=== PATIENT | male | born 1950 | race Caucasian/White ===

== ENCOUNTER 2019-01-16 11:28 | Inpatient (IN) | payer OTHER ==
[~2019-01-16] VITALS: Ht 175.3 cm; Wt 87.4 kg
[~2019-01-16 11:28] MED LIST: ANTI DEPRESSANT; BISCOLAX10 MG RECTAL; CARAFATE 1 GM TA1 G1 PO; HYDROCODON-ACE1 EAC7 PO; INDAPAMIDE2.5 MG PO; KLOR-CON 10 ER10 MEQ PO; LISINOPRIL40 MG PO; NEXIUM 40 MG CA40 M1 PO; NORCO 7.5-3251 EACH PO; PRINIVIL20 MG PO; PROTONIX40 M1 PO; SENOKOT-S1 TA1 PO; TEMAZEPAM15 MG PO; ULTRAM 50MG TAB50 MG PO; XANAX 0.5 MG0.5 M1 PO; ZETIA10 MG PO
[2019-01-16 11:30] VITALS: BP 137/87
[2019-01-16 11:45] LABS: ABSOLUTE NEUTROPHILS 4.9 thou/uL (1.4-8.2); BASOPHILS 2.2 % (0.0-2.0); EOSINOPHILS 1.4 % (0.0-3.0); HEMATOCRIT 48.9 % (42.0-52.0); HEMOGLOBIN 17.3 gm/dL (14.0-18.0); MCH 29.9 pg (26.0-34.0); MCHC 35.4 g/dL (28.0-37.0); MCV 84.6 fL (80.0-100.0); MONOCYTES 8.2 % (1.0-8.0); PLATELET COUNT 250 thou/uL (150-400); POLYS 55.2 % (36.0-66.0); RBC 5.78 mil/uL (4.50-6.00); RDW 13.7 % (10.5-14.5); WBC 8.8 thou/uL (4.0-11.0)
[2019-01-16 11:53] LABS: ANION GAP 14 mmol/L (7-16); BUN 20 mg/dL (7-18); CALCIUM 10.1 mg/dL (8.5-10.1); CHLORIDE 98 mmol/L (98-107); CO2 25 mmol/L (21-32); CREATININE 1.1 mg/dL (0.7-1.3); GLUCOSE 107 mg/dL (74-106); POTASSIUM 3.2 mmol/L (3.5-5.1); SODIUM 137 mmol/L (136-145)
[2019-01-16 12:03] LABS: ALBUMIN 4.5 g/dL (3.4-5.0); SGOT 27 U/L (15-37); SGPT 37 U/L (30-65); TOTAL BILIRUBIN 1.2 mg/dL (<0.1-1.0); TROPONIN-I <0.06 ng/mL (<0.06)
[2019-01-16] MEDS ORDERED: ZANTAC 150MG T150 MG PO (13:22)
[2019-01-16 13:45] VITALS: BP 117/59
[2019-01-16 14:23] LABS: CHOLESTEROL 318 mg/dL (<200); HDL CHOLESTEROL 30 mg/dL (>40); LDL CHOLESTEROL 257 mg/dL (<100); TC:HDL 10.6 Ratio (Not establshd); TRIGLYCERIDE 158 mg/dL (<150); VLDL 32 mg/dL (<40)
[2019-01-16 14:33] VITALS: BP 117/59
[2019-01-16 15:00] VITALS: BP 127/82
--- NOTE | 2019-01-16 16:04 | 2DMMODE ---
[facility] [place] [address] 2 D/M-MODE ECHOCARDIOGRAM Name: LATOSHA RAINEY Room #: 205-P [facility] IN [facility]#: [id number] ������������� Admission: 01/16/19 ������������� Attend Phys: Elo Rios MD Discharge: ��� ������������� ��� Date of : 52 Date of Service: 01/16/19 1604 �� Report #: [id number] �������� ��������������������������������������������[id number] THIS REPORT FOR: //name// APPROVED REPORT Study performed: 01/16/2019 14:20:53 EXAM: Comprehensive 2D, Doppler, and color-flow Echocardiogram Patient Location: Echo lab Room #: ER Status: routine BSA: 2.08 HR: 77 bpm BP: 117/59 mmHg Rhythm: NSR Other Information Study Quality: Adequate Indications History of valve disease. Short of breath, chest pain. Echo Enhancing Agent Indication: Endocardial border delineation Agent(s) / Amount(s) Used: Optison 5 cc 2D Dimensions RVDd: 35.15 mm IVSd: 10.41 (7-11mm) LVOT Diam: 21.59 (18-24mm) LVDd: 47.36 mm PWd: 9.99 (7-11mm) Ascending Ao: 33.34 (22-36mm) LVDs: 30.81 (25-40mm) Aortic Root: 40.86 mm Volumes Left Atrial Volume (Systole) Single Plane 4CH: 38.97 mL Single Plane 2CH: 56.08 mL LA ESV Index: 25.00 mL/m2 Aortic Valve AoV Peak Kirt.: 1.38 m/s AO Peak Gr.: 7.60 mmHg LVOT Max P.80 mmHg LVOT Max V: 0.97 m/s BABATUNDE Vmax: 2.59 cm2 [facility] [address] [place] [address] 2 D/M-MODE ECHOCARDIOGRAM Name: BRIGIDLATOSHA Gomez Room #: 205-P [facility] IN ..#: [id number] ������������� Admission: 01/16/19 ������������� Attend Phys: Elo Rios MD Discharge: ��� ������������� ��� Date of : 52 Date of Service: 01/16/19 1604 �� Report #: [id number] �������� ��������������������������������������������[id number] Mitral Valve E/A Ratio: 0.8 MV Decel. Time: 270.49 ms MV E Max Kirt.: 0.69 m/s MV A Kirt.: 0.84 m/s MV PHT: 78.44 ms IVRT: 72.66 ms Pulmonary Valve PV Peak Kirt.: 0.78 m/s PV Peak Gr.: 2.46 mmHg Pulmonary Vein P Vein S: 0.68 m/s P Vein A: 0.35 m/s P Vein D: 0.42 m/s P Vein A Dur.: 96.9 msec P Vein S/D Ratio: 1.62 Tricuspid Valve TR Peak Kirt.: 2.81 m/s RAP Estimate: 5.00 mmHg TR Peak Gr.: 31.63 mmHg PA Pressure: 37.00 mmHg Left Ventricle The left ventricle is normal size. There is normal LV segmental wall motion. There is normal left ventricular wall thickness. Left ventricular systolic function is normal. LVEF is 60-65%. Mild diastolic dysfunction is present (impaired relaxation pattern). Right Ventricle The right ventricle is normal size. The right ventricular systolic function is normal. Atria The left atrium size is normal. The right atrium size is normal. Aortic Valve The aortic valve is normal in structure, mildly thickened. No aortic regurgitation is present. There is no aortic valvular stenosis. Mitral Valve The mitral valve is normal in structure. No mitral regurgitation[place] [address] 2 D/M-MODE ECHOCARDIOGRAM Name: LATOSHA RAINEY Room #: 205-P [facility] IN ..#: [id number] ������������� Admission: 01/16/19 ������������� Attend Phys: Elo Rios MD Discharge: ��� ������������� ��� Date of : 52 Date of Service: 01/16/19 1604 �� Report #: [id number] �������� ��������������������������������������������[id number] The tricuspid valve is normal in structure. Mild to moderate tricuspid regurgitation. Estimated PAP is 35 mmHg. Pulmonic Valve The pulmonary valve is normal in structure. Trace pulmonic regurgitation. Great Vessels Aortic root is dilated at 4.1cm. The ascending aorta is normal in size. IVC is normal in size and collapses >50% with inspiration. Pericardium There is no pericardial effusion. <Conclusion> Left ventricular systolic function is normal. There is normal LV segmental wall motion. LVEF is 60-65%. Mild diastolic dysfunction The aortic valve is normal in structure, mildly sclerotic. No aortic regurgitation or stenosis. The mitral valve is normal in structure. No mitral regurgitation. Mild to moderate tricuspid regurgitation. Estimated pulmonary artery pressure of 35 mmHg. There is no pericardial effusion. ��������������������������������������������� <ELECTRONICALLY SIGNED> ���������������������������������������� By: Alistair Lobo MD, [facility] ��������������������������������������������� 01/16/19 1604 1604 1604 Alistair Lobo MD, FAC /INF
--- NOTE | 2019-01-16 16:43 | NUR ---
TO UNIT FROM Brianna PER CART AT 1500, REPORT FROM PETEY GOMEZ, DENIED CHEST PAIN. VSS. ORIENTED TO UNIT. NSR PER TELE. WILL CONTINUE TO FOLLOW.
[2019-01-16 19:50] VITALS: BP 123/74
[2019-01-17 00:04] VITALS: BP 105/64
[2019-01-17 04:36] VITALS: BP 111/62
[2019-01-17 05:11] LABS: HEMATOCRIT 45.2 % (42.0-52.0); HEMOGLOBIN 15.5 gm/dL (14.0-18.0); MCH 29.5 pg (26.0-34.0); MCHC 34.2 g/dL (28.0-37.0); MCV 86.4 fL (80.0-100.0); RBC 5.23 mil/uL (4.50-6.00); RDW 13.7 % (10.5-14.5); WBC 7.9 thou/uL (4.0-11.0)
--- NOTE | 2019-01-17 05:11 | NUR ---
PT HAS RESTED WELL THIS SHIFT. PT HAS BEEN NPO SINCE MIDNIGHT FOR HEART CATH PROCEDURE TODAY. PT SR/SB ON MONITOR. HAS NOT C/O OF ANY PERSISTANT CP.
[2019-01-17 07:20] VITALS: BP 116/64
[2019-01-17 09:06] LABS: GLYCOHEMOGLOBIN (HGB A1C) 5.1 % (4.8-5.6)
--- NOTE | 2019-01-17 09:41 | NUR ---
ASSUMED CARE OF PT APPROX 0715, GAVE HIS ONE MEDICATION DUE THIS A.M. PRIOR TO PROCEDURE W/FEW SIPS OF WATER. SPOUSE AT BEDSIDE, GAVE PT EDUCATION ON EXPECTATIONS ONCE HE RETURNS TO FLOOR. GAVE SPOUSE COFFEE. HEART REGULAR AND BREATH SOUNDS CLEAR. SEE INTERVENTION FOR FULL ASSESSMENT. ENCOURAGED BOTH TO USE CALL LIGHT FOR ANY NEEDS. PT LEFT UNIT AROUND 0920.
[2019-01-17] MEDS ORDERED: CRESTOR40 MG PO (10:45)
[2019-01-17 10:47] VITALS: BP 108/67
[2019-01-17] MEDS ORDERED: METOPROLOL SUCC50 MG PO (10:49)
[2019-01-17 11:36] LABS: CALCIUM 8.9 mg/dL (8.5-10.1); CREATININE 0.8 mg/dL (0.7-1.3); POTASSIUM 4.1 mmol/L (3.5-5.1)
--- NOTE | 2019-01-17 12:01 | CATHLAB ---
[facility] [place] [address] INVASIVE PROCEDURE REPORT Name: LATOSHA RAINEY Room #: 205-P ADM IN .R.#: [id number] ������������� Admission: 01/16/19 ������������� Attend Phys: Elo Rios MD Discharge: ��� ������������� ��� Date of : 52 Date of Service: 01/17/19 1201 �� Report #: [id number] �������� ��������������������������������������������[id number] THIS REPORT FOR: //name// APPROVED REPORT Study performed: 01/17/2019 09:10:01 Patient Details Patient Status: In-Patient Room #: 205 The patient is a 68 year-old male Event Personnel Estiven Álvarez Emission Specialist, Leland Caba RN RN, Mariangel Laird RTR, ONLINE PRODUCER Monitor, Gui Paz RTR Scrub Procedures Performed Art Access - R femoral artery* Left Heart Cath w/or w/o Coronaries [id number] [facility] Renal Bilateral Peripheral Angiography [id number] CVRENALBIL 64037 Initial Mod Sed Same Phys/QHP Gr5y [id number] Hemostasis w/ Mynx Indication Chest pain Procedure Narrative The Right Groin^ was infiltrated with 1% Lidocaine subcutaneous anesthesia. A PINNACLE 6FR Sheath #[id number] sheath was inserted into the RFA^. Coronary angiography was performed using coronary diagnostic catheters. The right coronary system was accessed and visualized with a JR4 catheter. The left coronary system was accessed and visualized with a JL4 catheter. The left ventricle was accessed and visualized with a Pigtail catheter. Left ventricular/Aortic Valve gradient assessed via catheter pullback. Left ventriculogram was performed in 30 degree projection. An aortogram of the abdominal aorta was performed. Pre-demployment femoral angiogram was performed . Closure device was deployed with a 6 Fr MYNXGRIP 6/7F #[id number]. There was no hematoma. Intraoperative Conscious Sedation Sedation start time: 09:55 Case end Time: 10:23 Fentanyl 100 mcg Versed 2 mg Fluoro Time: 5.12 minutes [facility] [address] [place] [address] INVASIVE PROCEDURE REPORT Name: LATOSHA RAINEY Room #: 205-P [facility] IN .R.#: [id number] ������������� Admission: 01/16/19 ������������� Attend Phys: Elo Rios MD Discharge: ��� ������������� ��� Date of : 52 Date of Service: 01/17/19 1201 �� Report #: [id number] �������� ��������������������������������������������[id number] Dose: DAP 7151.50 cGycm2 839 mGy Contrast Type and Amount: Omnipaque 145 ml Hemodynamics The aortic pressure is 170/55 mmHg with a mean of 83 mmHg. The left ventricular pressure is 117/8 mmHg with a mean of mmHg. The left ventricular end diastolic pressure is 18 mmHg. Conclusion #1 left main free of disease giving rise to LAD and circumflex. #2 LAD extends around the apex. There is moderate to diffuse disease from the mid vessel distally. Long area in the mid vessel 60% diffusely disease after treatment medically #3 circumflex OM is large dominant vessel with minimal plaquing. #4 small nondominant right coronary artery without significant disease. #5 normal left ventricular size and systolic function EF 55-60% #6 selective bilateral renal angiography was performed there is mild ostial disease involving the right renal artery Recommendations and plan continue aggressive risk factor modification. There is no indication for coronary intervention. Patient has familial hypercholesterolemia we will initiate aggressive cholesterol-lowering medication ��������������������������������������������� <ELECTRONICALLY SIGNED> ���������������������������������������� By: Estiven Álvarez MD, FACC ��������������������������������������������� 01/17/19 1201 1201 1201 Estiven Álvarez MD, FACC /INF
[2019-01-17 13:42] VITALS: BP 108/67
[2019-01-17 13:51] VITALS: BP 108/67
--- NOTE | 2019-01-19 07:49 | EKG ---
[address] [place] [address] ELECTROCARDIOGRAM REPORT Name: LATOSHA RAINEY Room #: 205-P [facility] IN M.R.#: [id number] ������������������ Admission: 01/16/19 ������������������ Attend Phys: Elo Rios MD Discharge: 01/17/19 ������������������ Date of : 52 Report #: [id number] ����������������������������������������������������������������� [id number] THIS REPORT FOR: //name// [facility] ED Test Date: 2019-01-16 Test Time: 11:33:39 Pat Name: LATOSHA RAINEY Department: Room: [facility][note 3] Gender: M Business Planning Manager: DUGLAS : 1950 Requested By: Florence Cisneros Order Number: [id number] MD: Alistair Lobo Measurements Intervals [place] Rate: 94 P: 56 AR: 120 QRS: -9 QRSD: 92 T: -2 QT: 363 QTc: 454 Interpretive Statements Sinus rhythm Abnormal R-wave progression, early transition nonspecific ST segment abnormality Compared to ECG 10/21/2013 21:24:56 No significant changes Electronically Signed On 01-19-2019 7:49:37 CDT by Alistair Lobo [email or web address] ��������������������������������������������� <ELECTRONICALLY SIGNED> ���������������������������������������� By: Alistair Lobo MD, [facility] ��������������������������������������������� 01/19/19 0749 1133 1133 Alistair Lobo MD, [facility] /EPI
--- NOTE | 2019-01-19 07:58 | EKG ---
[address] [place] [address] ELECTROCARDIOGRAM REPORT Name: LATOSHA RAINEY Room #: 205-[facility] IN M.R.#: [id number] ������������������ Admission: 01/16/19 ������������������ Attend Phys: Elo Rios MD Discharge: 01/17/19 ������������������ Date of : 52 Report #: [id number] ����������������������������������������������������������������� [id number] THIS REPORT FOR: //name// [facility] Test Date: 2019-01-17 Test Time: 07:12:27 Pat Name: LATOSHA RAINEY Department: Room: 205 Gender: M Real Estate Representative: Elle RAMOS : 1950 Requested By: Sophia Matthews Order Number: [id number] MD: Alistair Lobo Measurements Intervals [place] Rate: 56 P: 32 AL: 126 QRS: -18 QRSD: 89 T: 0 QT: 455 QTc: 440 Interpretive Statements Sinus rhythm No significant abnormality Compared to ECG 10/21/2013 21:24:[address] segment abnormality no longer present Electronically Signed On 01-19-2019 7:58:02 CDT by Alistair Lobo [email or web address] ��������������������������������������������� <ELECTRONICALLY SIGNED> ���������������������������������������� By: Alistair Lobo MD, [facility] ��������������������������������������������� 01/19/19 0758 1 1 Alistair Lobo MD, [facility] /EPI
== END 2019-01-17 14:25 | disposition home or self-care (01) | DRG 287 ==
LOC: ER 11:28 → EROBS 13:29 → 2N 14:56
PROVIDERS: Physician Assistant; ADMIT Internal Medicine
PROC: B2111ZZ Fluoroscopy of Multiple Coronary Arteries using Low Osmolar Contrast (ICD-10-PCS; principal; 2019-01-17)
PROC: B4101ZZ Fluoroscopy of Abdominal Aorta using Low Osmolar Contrast (ICD-10-PCS; principal; 2019-01-17)
PROC: B2151ZZ Fluoroscopy of Left Heart using Low Osmolar Contrast (ICD-10-PCS; principal; 2019-01-17)
PROC: 4A023N7 Measurement of Cardiac Sampling and Pressure, Left Heart, Percutaneous Approach (ICD-10-PCS; principal; 2019-01-17)
PROC: B41F1ZZ Fluoroscopy of Right Lower Extremity Arteries using Low Osmolar Contrast (ICD-10-PCS; principal; 2019-01-17)
PROC: B4181ZZ Fluoroscopy of Bilateral Renal Arteries using Low Osmolar Contrast (ICD-10-PCS; principal; 2019-01-17)
DX: I25.110 Atherosclerotic heart disease of native coronary artery with unstable angina pectoris (principal); F11.20 Opioid dependence, uncomplicated; F32.9 Major depressive disorder, single episode, unspecified; G89.29 Other chronic pain; M54.5 Low back pain; I10 Essential (primary) hypertension; F41.9 Anxiety disorder, unspecified; K21.9 Gastro-esophageal reflux disease without esophagitis; E87.6 Hypokalemia; Z96.649 Presence of unspecified artificial hip joint; E78.01 Familial hypercholesterolemia; E78.49 Other hyperlipidemia; G47.00 Insomnia, unspecified; Z79.899 Other long term (current) drug therapy; Z87.891 Personal history of nicotine dependence
CPT/HCPCS: 10081